=== PATIENT | female | born 1940 | race Caucasian/White ===

== ENCOUNTER 2018-10-28 08:11 | Outpatient (CLI) | payer OTHER ==
[~2018-10-28 08:11] MED LIST: ALPRAZOLAM ER1 MG PO; ALPRAZOLAM1 MG PO; AVALIDE 150/12.1 TAB PO; BUTALBITAL25 GM MC; CEFADROXIL500 MG PO; DOXEPIN HCL50 MG PO; FLUOXETINE HCL20 M1 PO; PENTOXIL400 MG PO; PERCOCET 5/3251 TAB PO; PROTONIX40 MG PO; SEROQUEL50 MG PO; SIMVASTATIN20 MG PO; TROMBONEX CAPSU1 CAP PO; VERAPAMIL HCL240 MG PO; VERELAN240 MG PO
== END 2018-10-28 19:53 | disposition home or self-care (01) ==
LOC: LAB 08:11
DX: I11.9 Hypertensive heart disease without heart failure (principal); M54.5 Low back pain; N77.1 Vaginitis, vulvitis and vulvovaginitis in diseases classified elsewhere; M79.604 Pain in right leg; M79.605 Pain in left leg; Z13.820 Encounter for screening for osteoporosis; R00.2 Palpitations; R42 Dizziness and giddiness; E55.9 Vitamin D deficiency, unspecified; Z12.11 Encounter for screening for malignant neoplasm of colon; Z11.4 Encounter for screening for human immunodeficiency virus [HIV]

== ENCOUNTER 2018-10-30 12:52 | Outpatient (CLI) | payer OTHER | END 2018-10-30 13:42 | disposition home or self-care (01) | LOC: LAB 12:52 | DX: I11.9 Hypertensive heart disease without heart failure (principal); M54.5 Low back pain; N77.1 Vaginitis, vulvitis and vulvovaginitis in diseases classified elsewhere; M79.604 Pain in right leg; M79.605 Pain in left leg; Z13.820 Encounter for screening for osteoporosis; R00.2 Palpitations; R42 Dizziness and giddiness; E55.9 Vitamin D deficiency, unspecified; Z12.11 Encounter for screening for malignant neoplasm of colon ==

== ENCOUNTER 2018-10-30 13:00 | Outpatient (CLI) | payer OTHER | END 2018-10-30 13:42 | disposition home or self-care (01) | LOC: RAD 13:00 | DX: I11.9 Hypertensive heart disease without heart failure (principal); M54.5 Low back pain; N77.1 Vaginitis, vulvitis and vulvovaginitis in diseases classified elsewhere; M79.604 Pain in right leg; M79.605 Pain in left leg; Z12.31 Encounter for screening mammogram for malignant neoplasm of breast; Z13.820 Encounter for screening for osteoporosis ==

== ENCOUNTER 2018-11-07 10:51 | Outpatient (CLI) | payer OTHER | END 2018-11-07 10:59 | disposition home or self-care (01) | LOC: MAMO-SONO 10:51 | DX: Z12.31 Encounter for screening mammogram for malignant neoplasm of breast (principal); Z87.898 Personal history of other specified conditions; N64.89 Other specified disorders of breast; M54.5 Low back pain; N77.1 Vaginitis, vulvitis and vulvovaginitis in diseases classified elsewhere; M79.604 Pain in right leg; M79.605 Pain in left leg; Z13.820 Encounter for screening for osteoporosis ==

== ENCOUNTER → 2018-11-07 | Outpatient (CLI) | payer OTHER | END | disposition home or self-care (01) | LOC: NUCLEAR 10:00 | DX: I11.9 Hypertensive heart disease without heart failure (principal); M54.5 Low back pain; N77.1 Vaginitis, vulvitis and vulvovaginitis in diseases classified elsewhere; M79.604 Pain in right leg; M79.605 Pain in left leg; I87.2 Venous insufficiency (chronic) (peripheral); M81.0 Age-related osteoporosis without current pathological fracture ==

== ENCOUNTER → 2019-10-09 16:17 | Outpatient (CLI) | payer OTHER | END | disposition home or self-care (01) | LOC: RAD 16:17 | DX: I10 Essential (primary) hypertension (principal) ==

== ENCOUNTER → 2019-10-14 10:19 | Outpatient (CLI) | payer OTHER | END | disposition home or self-care (01) | LOC: LAB 10:19 | DX: Z78.9 Other specified health status (principal); Z13.29 Encounter for screening for other suspected endocrine disorder; E05.90 Thyrotoxicosis, unspecified without thyrotoxic crisis or storm; E55.9 Vitamin D deficiency, unspecified ==

== ENCOUNTER → 2020-04-01 09:00 | Outpatient (CLI) | payer OTHER | END | disposition home or self-care (01) | LOC: LAB 09:00 | PROVIDERS: ATTEND Internal Medicine | DX: I11.9 Hypertensive heart disease without heart failure (principal); E78.2 Mixed hyperlipidemia; Z13.29 Encounter for screening for other suspected endocrine disorder; E05.90 Thyrotoxicosis, unspecified without thyrotoxic crisis or storm; E55.9 Vitamin D deficiency, unspecified ==

== ENCOUNTER 2021-12-26 11:40 | Emergency (ER) | payer OTHER ==
[~2021-12-26] VITALS: Ht 167.6 cm; Wt 136.1 kg
[2021-12-26] MEDS ORDERED: PENTOXIFYLLINE (12:11)
== END 2021-12-26 15:34 | disposition home or self-care (01) ==
LOC: ER 11:40
DX: H66.92 Otitis media, unspecified, left ear (principal); R42 Dizziness and giddiness; I10 Essential (primary) hypertension

== ENCOUNTER 2022-04-14 02:19 | Emergency (ER) | payer OTHER ==
[~2022-04-14] VITALS: Ht 154.9 cm; Wt 104.3 kg
[~2022-04-14 02:19] MED LIST changes: +PENTOXIFYLLINE
== END 2022-04-14 10:10 | disposition home or self-care (01) ==
LOC: ER 02:19
DX: R42 Dizziness and giddiness (principal); R11.2 Nausea with vomiting, unspecified; Z20.822 Contact with and (suspected) exposure to COVID-19; Z88.6 Allergy status to analgesic agent